=== PATIENT | female | born 1990 | race Caucasian/White ===

== ENCOUNTER 2022-05-28 08:24 | Day surgery (SDC) | payer OTHER ==
--- NOTE | 2022-05-28 08:16 | HP ---
DATE OF SURGERY: 05/28/2022 HISTORY OF PRESENT ILLNESS: The patient is a 31-year-old initially with some substernal pain to shoulders. She had some more nausea and symptoms. It wakes her up, worse over the past three years. PAST MEDICAL HISTORY: Reflux, migraine headaches, hypertension. PAST SURGICAL HISTORY: Tonsillectomy and adenoidectomy. MEDICATIONS: Omeprazole, metoprolol, Singulair, Sarah. ALLERGIES: NKDA. FAMILY HISTORY: Migraines. SOCIAL HISTORY: Former smoking, occasional alcohol use. REVIEW OF SYSTEMS: Fourteen systems reviewed. No chest pain or palpitations. Other systems negative or noncontributory as above and per preadmission questionnaire. PHYSICAL EXAMINATION: BMI 25.82. GENERAL: No acute distress. HEENT: Sclerae nonicteric. NECK: No JVD. CHEST: Equal excursion, nonlabored breathing. CVS: Regular rate and rhythm. ABDOMEN: Soft. No peritoneal signs. EXTREMITIES: No significant edema. NEURO: Alert, oriented, moving extremities symmetrically. PSYCH: Appropriate mood and affect. SKIN: Dry. IMPRESSION: Symptomatic cholelithiasis. I feel she has acute exacerbation of chronic cholecystitis, cholelithiasis. I recommend cholecystectomy. Risks and benefits explained in detail including but not limited to bleeding or infection, risk of bowel injury or perforation, risk of missed or nondiagnosis or incomplete exam, risk of trocar injury or hernia, risk of bile leak, bile duct injury, retained stone or sludge possibly requiring further procedure either open or ERCP, general risk of anesthesia, deep venous thrombosis, pulmonary embolism, perioperative risk of aches, pains, bloating, constipation and/or loose stools possibly even chronic in nature, possibility of no improvement in her symptoms possibly requiring endoscopy, other studies, work up and also possible need for open procedure. She understands and agrees to the planned procedure, will proceed with laparoscopic cholecystectomy with possible open as an outpatient.
[~2022-05-28 08:24] MED LIST: Lactated Ringers 1,000 ML IV ONE; Sensorcaine 0.25% 10 ML ONE
[2022-05-28] MEDS ORDERED: Pepcid 20 MG VIAL IV ONE (08:25)
[2022-05-28] MEDS ORDERED: Reglan 10 MG/2 ML IV ONE (08:25)
[2022-05-28] MEDS ORDERED: Transderm Scop 1.5MG Patch TOP ONE (08:25)
[2022-05-28] MEDS: Lactated Ringers 1,000 ML IV SCH (09:03)
[2022-05-28] MEDS: MEFOXIN 2 GM PREMIX** 2 GM/50 ML ML IV SCH (09:03)
[2022-05-28] MEDS ORDERED: DIPRIVAN 200 MG/20 ML IV ONE (09:53)
[2022-05-28] MEDS ORDERED: Decadron 4 MG INJ ONE (09:54)
[2022-05-28] MEDS ORDERED: Xylocaine-Mpf 2% 5 Ml Vial ONE (09:54)
[2022-05-28] MEDS ORDERED: BRIDION 200MG/2ML IV ONE (09:54)
[2022-05-28] MEDS ORDERED: Versed 2 MG/2 ML Injection ONE (09:54)
[2022-05-28] MEDS ORDERED: SUBLIMAZE 100 MCG/2 ML ONE ×2 (09:54→13:00)
[2022-05-28] MEDS ORDERED: Zemuron 100 MG/10 ML ONE (09:54)
[2022-05-28] MEDS ORDERED: Zofran 4 MG/2 ML VIAL ONE (09:54)
[2022-05-28] MEDS ORDERED: TORAdol 30 mg Injection ONE (09:54)
[2022-05-28] MEDS ORDERED: OFIRMEV 100 ML IV ONE (10:02)
[2022-05-28] MEDS ORDERED: DEXMEDETOMIDINE 80 MCG/20ML-NS IV ONE (12:02)
[2022-05-28] MEDS ORDERED: NORCO 5/325 MG ONE (13:52)
[2022-05-28] MEDS: NORCO 5/325 MG PO PRN (13:54)
[2022-05-28] MEDS: Zofran 4 MG/2 ML VIAL IV PRN (14:14)
[2022-05-28 14:29] VITALS: BP 142/86; PULSE 69; O2SAT 97
--- NOTE | 2022-05-29 12:05 | OP ---
SURGERY DATE/TIME: 05/28/2022 1144 PREOPERATIVE DIAGNOSIS: Acute exacerbation of chronic cholecystitis, symptomatic cholelithiasis. POSTOPERATIVE DIAGNOSIS: Acute exacerbation of chronic cholecystitis, symptomatic cholelithiasis. PROCEDURE: Laparoscopic cholecystectomy. SURGEON: Dr. Jorge Luis Cox. ANESTHESIA: General. ESTIMATED BLOOD LOSS: Minimal. INDICATIONS: As noted above. Risks and benefits explained in detail but not limited to and consent obtained. DESCRIPTION OF PROCEDURE AND FINDINGS: The patient was taken to the operating room. General anesthesia induced. Abdomen prepped and draped in usual sterile fashion. After official time out and no disagreement with planned procedure, a transverse incision made in the infraumbilical area as she had supraumbilical piercing so went below. Fascia grasped, pulled upward. Veress needle inserted and tested with saline. Pneumoperitoneum accomplished insufflating opening pressure of 0-15. A 5 mm bladeless port and camera were inserted without difficulty followed by two - 5 mm right upper quadrant ports and 11 mm epigastric port. As she had stones, anesthesia positioned on the table. The gallbladder is grasped retracted over edge of the liver and laterally away from Calot's triangle. There was chronic inflammatory reaction. Dissection carried posterior, lateral to anterior fashion. It had quite a bit of inflammation. Cystic duct and cystic artery coming across anteriorly this was isolated and clipped x3 and divided this allowed access to the cystic duct infundibular area. Slowly and carefully well skeletonized until critical view obtained anteriorly and posteriorly. Once this was accomplished cystic duct and cystic artery clipped x3 and divided in the usual fashion. The gallbladder is slowly and carefully dissected free from its dense attachments to the liver bed. It had quite a bit of inflammation where the stone was impacted in infundibulum area but slowly and carefully clipping additional side branches off of the cystic artery and cystic vein directly on the gallbladder wall as necessary. Just prior to releasing from final attachments to the anterior edge of the liver, a little oozing area anterior edge of the liver controlled with pinpoint cautery. Good hemostasis noted. Clips noted in place in the cystic duct and cystic artery stumps. No signs of any active bleeding or bile leakage. It was felt there was no benefit of drain placement. The gallbladder was released from final attachments to anterior edge of the liver, placed in the provided sac, pulled up into the epigastrium which was spread a little bit of the fascia with the clamp to allow the gallbladder and bag to be pulled free and passed off. Copious amount of irrigation accomplished lateral to the liver irrigating clear. Clips noted to be in place cystic duct and cystic artery stumps. No signs of any active bleeding or bile leakage. It was felt there was no benefit in drain placement. Fascial defect at 11 mm port site closed with puncture closure device with #1 Vicryl. Pneumoperitoneum decompressed. The wound irrigated out. Skin incision closed with 4-0 Vicryl. Steri-Strips and sterile dressing applied. The patient tolerated the procedure well there were no immediate complications.
== END 2022-05-28 14:35 | disposition home or self-care (01) ==
LOC: SDC 08:24
PROVIDERS: ATTEND Surgery
DX: K80.10 Calculus of gallbladder with chronic cholecystitis without obstruction (principal)
CPT/HCPCS: 81025; 96374; J0694; J1100; J1885; J2250; J2405; J2704; J3010; A9270-GY